=== PATIENT | female | born 1995 | race Two or more races ===

== ENCOUNTER 2024-04-03 17:11 | Emergency (ER) | payer OTHER ==
[~2024-04-03] VITALS: Ht 167.6 cm; Wt 68.0 kg
[2024-04-03] MEDS ORDERED: FAMOtidine 10 MG/ML (4ML VIAL) IV PUSH STA (17:53)
== END 2024-04-03 21:53 | disposition home or self-care (01) ==
LOC: ER 17:14
DX: K29.70 Gastritis, unspecified, without bleeding (principal); R07.89 Other chest pain

== ENCOUNTER 2024-04-11 14:46 | Emergency (ER) | payer OTHER ==
[~2024-04-11] VITALS: Ht 162.6 cm; Wt 77.1 kg
[2024-04-11 15:22] VITALS: BP 140/86; O2SAT 100
== END 2024-04-11 16:56 | disposition home or self-care (01) ==
LOC: ER 14:49
DX: J02.9 Acute pharyngitis, unspecified (principal)